=== PATIENT | female | born 1990 | race Caucasian/White ===

== ENCOUNTER 2020-05-01 09:53 | Outpatient (CLI) | payer MEDICAID ==
--- NOTE | 2020-05-01 11:10 | MMO ---
Bilateral MAMMO Bilat Diag [facility]. CLINICAL HISTORY: Patient is 29 years old and is seen for diagnostic exam and lump or thickening in both breasts. The patient has no family history of breast cancer. The patient has no personal history of cancer. The patient has a history of right Excisional Biopsy in 2015 - fibroadenoma. VIEWS: The views performed were: bilateral craniocaudal with tomosynthesis; bilateral mediolateral oblique with tomosynthesis; and bilateral mediolateral with tomosynthesis. FILMS COMPARED: The present examination has been compared to [place] [facility] [place] and at [facility] on 06/23/2015. This study has been interpreted with the assistance of computer-aided detection. MAMMOGRAM FINDINGS: There are scattered fibroglandular densities. There are multiple masses of varying size with circumscribed margins seen in both breasts. There are no suspicious masses, suspicious calcifications, or new areas of architectural distortion. IMPRESSION: THERE IS NO MAMMOGRAPHIC EVIDENCE OF MALIGNANCY. MULTIPLE FIBROADENOMAS , THE LARGEST ONES CORRELATE WITH BILATTERAL PALPABLE FINDINGS. MOST SHOW INCREASE IN SIZE. A ROUTINE FOLLOW-UP MAMMOGRAM AT AGE 41 IS RECOMMENDED. THE RESULTS OF THIS EXAM WERE SENT TO THE PATIENT. ACR BI-RADS Category 2 - Benign finding MAMMOGRAPHY NOTE: 1. A negative mammogram report should not delay a biopsy if a dominant of clinically suspicious mass is present. 2. Approximately 10% to 15% of breast cancers are not detected by mammography. 3. Adenosis and dense breasts may obscure an underlying neoplasm. Reported by: RICHARD VELAZQUEZ MD Electonically Signed: [id number]
--- NOTE | 2020-05-01 11:46 | ULT ---
LEFT BREAST ULTRASOUND: Date: 05/01/2020 HISTORY: Palpable finding in left breast, which patient initially indicated at 9 o'clock, but then indicated 3 o'clock. FINDINGS: In the left breast, at the 3 o'clock position, 4.0 cm from the nipple, there is a 1.8 x 2.5 x 3.5 cm diameter solid, homogeneous, slightly hypoechoic mass, evidence for a large fibroadenoma. This appear s to have slightly increased in size from the prior ultrasound examination of 06/23/2015. There are s everal other smaller circumscribed solid masses, evidence for multiple other smaller fibroadenomas. IMPRESSION: BI-RADS Category 2 - Benign findings. Multiple fibroadenomas in the left breast, the largest of which is at approximately 3 o'clock, 4.0 cm from the nipple. If these palpable findings markedly increase or size or change in character, follow-up ultrasound tiffanie dy should be considered. If not, follow-up bilateral mammogram at age 36 is recommended. POS: OFF
--- NOTE | 2020-05-01 11:48 | ULT ---
RIGHT BREAST ULTRASOUND: Date: 05/01/2020 HISTORY: Patient presents with a palpable finding at 2 o'clock. FINDINGS: Circumscribed, slightly hypoechoic, solid mass measuring 2.3 x 2.7 x 3.2 cm in size is noted, account ing for the largest palpable finding. A smaller palpable finding is at 2 o'clock, approximately 5.0 c m from the nipple, and this one measures 1.3 x 1.4 x 2.8 cm. There are several other smaller solid ci rcumscribed masses as well. IMPRESSION: Multiple fibroadenomas in the right breast accounting for two palpable findings. If the patient notices a marked increase in size or other change in character of these palpable findi ngs, additional imaging with follow-up ultrasound at that time should be considered. If not, follow-u p mammogram at age 36 is recommended. POS: OFF
== END 2020-05-01 09:54 | disposition home or self-care (01) ==
LOC: BICMAMMO 09:53
PROVIDERS: ATTEND Nurse Practitioner
DX: N63.0 Unspecified lump in unspecified breast (principal); D24.1 Benign neoplasm of right breast; D24.2 Benign neoplasm of left breast
CPT/HCPCS: 77066; G0279

== ENCOUNTER 2021-10-24 09:04 | Emergency (ER) | payer MEDICAID, SELFPAY ==
[2021-10-24 09:44] LABS: #Lymphocytes 1.6 thou/uL (1.20-3.40); #Monocytes 0.4 thou/uL (0.11-0.59); #Neutrophils 2.7 thou/uL (1.40-6.50); %Basophils 0.2 % (0.0-1.0); %Eosinophils 0.2 % (0.0-10.0); %Lymphocytes 34.4 % (21.0-51.0); %Monocytes 7.6 % (0.0-10.0); %Neutrophils 57.6 % (42.0-75.0); Hemoglobin 14.4 g/dL (12.0-16.0); Mean Corpuscular Hemoglobin 29.7 pg (27.0-31.0); Mean Corpuscular Volume 89.8 fL (78.0-98.0); Mean Platelet Volume 7.6 fL (7.4-10.4); Platelet Count 184 thou/uL (130-400); RBC Distribution Width 11.7 % (11.5-14.5); Red Blood Cell (RBC) Count 4.84 mill/uL (4.20-5.40); White Blood Cell (WBC) Count 4.7 thou/uL (4.8-10.8)
[2021-10-24 10:01] LABS: ALT (SGPT) 70 U/L (8-55); AST (SGOT) 53 U/L (5-34); Alkaline Phosphatase 97 U/L (40-110); Anion Gap 17 mmol/L (10-20); BUN (Urea Nitrogen) 12 mg/dL (7.0-18.7); Bilirubin, Total 0.3 mg/dL (0.2-1.2); Calc. Creatinine Clearance 0 mL/min (70-130); Calcium 9.3 mg/dL (7.8-10.44); Carbon Dioxide 20 mmol/L (22-29); Chloride 107 mmol/L (98-107); Globulin 4.1 g/dL (2.4-3.5); Glucose 110 mg/dL (70-105); Potassium 4.1 mmol/L (3.5-5.1); Protein, Total 8.1 g/dL (6.0-8.3); Sodium 140 mmol/L (136-145)
[2021-10-24 11:22] LABS: BHCG - Serum Negative (NEGATIVE); Pregs Control Background? CLEAR/WHITE (CLR/WHITE); Pregs Control Bar Appear? YES (CONTROL BAR)
[2021-10-24] MEDS ORDERED: Ondansetron PF 4 MG/2 ML Vial ONE (11:38)
== END 2021-10-24 14:45 | disposition home or self-care (01) ==
LOC: ERS 09:04
DX: U07.1 COVID-19 (principal)
CPT/HCPCS: 36415; 71045; 80053; 84703; 85025; 96374; J2405